=== PATIENT | female | born 1985 | race Caucasian/White ===

== ENCOUNTER 2018-11-27 12:54 | Inpatient (IN) | payer MEDICAID ==
[~2018-11-27] VITALS: Ht 160 cm; Wt 81.4 kg
[2018-12-01 09:10] VITALS: BP 112/70
== END 2018-12-01 15:02 | disposition home or self-care (01) | DRG 807 ==
LOC: LDIP 11-29 05:32 → 2NW 11-29 22:11
PROVIDERS: ADMIT Obstetrics & Gynecology Maternal & Fetal Medicine; ATTEND Obstetrics & Gynecology Maternal & Fetal Medicine
PROC: 10E0XZZ Delivery of Products of Conception, External Approach (ICD-10-PCS; principal; 2018-11-29)
PROC: 10907ZC Drainage of Amniotic Fluid, Therapeutic from Products of Conception, Via Natural or Artificial Opening (ICD-10-PCS; 2018-11-29)
DX: O99.824 Streptococcus B carrier state complicating childbirth (principal); Z37.0 Single live birth; O40.3XX0 Polyhydramnios, third trimester, not applicable or unspecified; O48.0 Post-term pregnancy; O66.3 Obstructed labor due to other abnormalities of fetus; O66.0 Obstructed labor due to shoulder dystocia; Z3A.40 40 weeks gestation of pregnancy; Z87.891 Personal history of nicotine dependence; Z87.730 Personal history of (corrected) cleft lip and palate
CPT/HCPCS: 36415; 82803; 85025; 86850; 86900; 90715; G0378; J2540; J3010; J2590; J7120